=== PATIENT | male | born 1950 | race Caucasian/White ===

== ENCOUNTER 2020-10-13 09:48 | Emergency (ER) | payer MEDICARE, OTHER ==
[~2020-10-13] VITALS: Ht 172.7 cm; Wt 87.7 kg
--- NOTE | 2020-10-13 09:59 | NUR ---
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
--- NOTE | 2020-10-13 10:09 | NUR ---
PT BIB SELF VIA POV. PER PT HE WAS SEEN AT [facility]LIER D/T NOT BEING ABLE TO SLEEP BECAUSE HE "IS AWOKEN TO HIM NOT BEING ABLE TO BREATHE ENOUGH" PT ALSO STATES THAT AT HIS HR WAS LOW. PT'S HR CURRENTLY 62 BPM. PT STATES NO CARDIAC HX, ONLY HX OF PROSTATE CANCER. PT STATES NO SYMPTOMS AT THIS TIME, EXCEPT FOR FEELING TIRED D/T LACK OF SLEEP THE PAST TWO NIGHTS. PT RESTING IN [facility], MONITORING IN PLACE, NADN AT THIS TIME, CALL [facility]IN REACH, WCTM.
[2020-10-13] MEDS ORDERED: SODIUM CHLORIDE FLUSH 10ML SYR IVF ONE (10:30)
[2020-10-13 10:39] LABS: BASOPHILS % (AUTO) 1 % (0-1); EOSINOPHILS % (AUTO) 2 % (1-7); LYMPHOCYTES % (AUTO) 24 % (22-44); MEAN CORPUSCULAR HEMOGLOBIN 32.3 pg (27.5-34.5); MEAN CORPUSCULAR HGB CONC 34.3 g/dL (33.2-36.2); MEAN PLATELET VOLUME 9.1 fL (7.4-10.4); MONOCYTES % (AUTO) 11 % (2-9); NEUTROPHILS % (AUTO) 62 % (42-75); PLATELET COUNT 235 x10^3/uL (130-400); RED BLOOD COUNT 4.58 x10^6/uL (4.38-5.82); RED CELL DISTRIBUTION WIDTH 13.2 % (9.4-14.8)
[2020-10-13 10:52] LABS: ALANINE AMINOTRANSFERASE 51 U/L (12-78); ANION GAP 5 mmol/L (5-15); CALCIUM 8.9 mg/dL (8.5-10.1); CHLORIDE 107 mmol/L (98-107); CREATININE 0.91 mg/dL (0.7-1.3)
[2020-10-13 10:56] LABS: ALKALINE PHOSPHATASE 57 U/L (45-117); BILIRUBIN,TOTAL 0.7 mg/dL (0.2-1.0); TOTAL PROTEIN 7.4 g/dL (6.4-8.2); TROPONIN I < 0.015 ng/mL (0.000-0.045)
[2020-10-13 11:53] VITALS: BP 155/85
== END 2020-10-13 11:56 | disposition home or self-care (01) ==
LOC: ED 10:35
DX: R06.00 Dyspnea, unspecified (principal); R00.1 Bradycardia, unspecified; I10 Essential (primary) hypertension
CPT/HCPCS: 36415; 80053; 83880; 84484; 85025; 85379; 93005; 99284